=== PATIENT | female | born 1975 | race Caucasian/White ===

== ENCOUNTER 2018-11-15 22:50 | Emergency (ER) | payer OTHER ==
[2018-11-15 22:55] VITALS: BP 117/66; PULSE 79; TEMP 98.4; BMI 28.9
--- NOTE | 2018-11-16 00:56 | PDOC ---
History of Present Illness - General Chief Complaint: Injury Stated Complaint: R FOOT INJURY Time Seen by Provider: 11/16/18 00:55 - History of Present Illness Initial Comments: 11/16/18 00:56 Sonya Andujar is a 43F presenting with trauma to her right big toe. 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 Now reports sharp, throbbing pain to her toe radiating up through her foot and into her R lower leg. Nail was coming off and bleeding profusely at the time, but has since slowed down. Denies any LOC, fall, or any other injury. Has IUD, denies at this time. No drug allergies. Past History - Past Medical History Allergies/Adverse Reactions: Allergies Allergy/AdvReac Type Severity Reaction Status Date / Time No Known Allergies Allergy Verified 11/16/18 01:11 Home Medications: Ambulatory Orders Ibuprofen 800 mg PO TID PRN #21 tablet 11/16/18 COPD: No - Immunization History Immunization Up to Date: Yes - Suicide/Smoking/Psychosocial Hx Smoking Status: No Smoking History: Never smoked Number of Cigarettes Smoked Daily: 0 Review of Systems - Review of Systems Able to Perform ROS?: Yes Is the patient limited Romansh proficient: No Constitutional: Yes: Symptoms Reported, Chills HEENTM: No: Symptoms Reported Respiratory: No: Symptoms reported Cardiac (ROS): No: Symptoms Reported ABD/GI: No: Symptoms Reported : No: Symptoms Reported Musculoskeletal: Yes: See HPI, Other (pain and bleeding to her R big toe, nail coming off) Integumentary: No: Symptoms Reported Neurological: No: Symptoms reported Endocrine: No: Symptoms Reported Hematologic/Lymphatic: No: Symptoms Reported All Other Systems: Reviewed and Negative *Physical Exam - Vital Signs Last Vital Signs Temp Pulse Resp BP Pulse Ox 98.4 F 79 19 117/66 97 11/15/18 22:53 11/15/18 22:53 11/15/18 22:53 11/15/18 22:53 11/15/18 22:53 - Physical Exam General Appearance: Yes: Nourished, Appropriately Dressed, Mild Distress HEENT: positive: EOMI, Normal ENT Inspection, Normal Voice, Hearing Grossly Normal. negative: Scleral Icterus (R), Scleral Icterus (L) Neck: positive: Trachea midline, Normal Thyroid, Supple. negative: Lymphadenopathy (R), Lymphadenopathy (L) Respiratory/Chest: positive: Lungs Clear, Normal Breath Sounds. negative: Respiratory Distress Cardiovascular: positive: Regular Rhythm, Regular Rate. negative: Murmur Gastrointestinal/Abdominal: positive: Normal Bowel Sounds, Soft. negative: Organomegaly Musculoskeletal: positive: Normal Inspection Extremity: positive: Other (R foot: nail on big toe is avulsed but attached at the root with some clots under nail, not actively bleeding but has serosang drainage, toe erythematous and grossly tender, able to move big toe but limited by pain, DP pulse present, remaining toes appear grossly normal and non-tender, full ROM at ankle and knee, no bony tenderness to tibia) Integumentary: positive: Normal Color, Dry, Warm Neurologic: positive: Fully Oriented, Alert, Normal Mood/Affect, Normal Response Procedures - Laceration/Wound Repair Right Foot 1st digit Wound Explored: clean Wound's Depth, Shape: nail-avulsed (incomplete avulsion to R big toe) Irrigated w/ Saline: Yes Betadine Prep: No Anesthesia: 2% Lidocaine (performed a ring block to big toe in the web space as well as to both sides of toe) Amount of Anesthetic (ccs): 3 Wound Debrided: minimal Sterile Dressing Applied: Yes (Kerlix wrapped around toe to keep nail in place) Medical Decision Making - Medical Decision Making 11/16/18 00:56 Sonya Andujar is a 43F presenting with trauma to her right big toe. Toe appears grossly erythematous and is tender to toe and foot, concern high for toe fracture. Will give Motrin and get XR R foot to evaluate. No active bleeding from under toenail but possible nail bed laceration, will evaluate after XR. 11/16/18 02:23 No toe fx noted on XR foot. Will attempt to replace avulsed nail back into toe. Gave 4mg morphine IM and performed ring block on R big toe. Wrapped toe in Kerlix and tape to keep nail down into bed. Will d/c home with care instructions and f/u. *DC/Admit/Observation/Transfer Diagnosis at time of Disposition: Pain of right great toe Toenail avulsion Qualifiers: Encounter type: initial encounter Qualified Code(s): S91.209A - Unspecified open wound of unspecified toe(s) with damage to nail, initial encounter - Prescriptions Prescriptions: Ibuprofen 800 mg PO TID PRN #21 tablet PRN Reason: Pain - Referrals Referrals: ON STAFF,NOT [Primary Care Provider] - - Patient Instructions Additional Instructions: Today you were evaluated for an injury to your big toe on the right foot. We gave you some Motrin as well as morphine for the pain. We obtained an X-ray of your right foot, and your toe is not broken. We numbed your toe and pushed the nail back into the nail bed, then wrapped the toe in gauze, which we have also provided you with. Please keep the toe dry by wrapping a bag or other covering around the toe for the next week. Replace the gauze around the toe if it gets dirty, and keep it wrapped tight to keep the nail in place for the next 5-7 days. After, keep the area clean with soap and water. The nail will eventually fall off as as new nail grows underneath; this is normal and expected. Try not to use your left foot for any strenuous activities, including exercise or sports. We have included a prescription for a stronger ibuprofen for your pain, please take one 800mg pill every 8 hours as needed for pain, up to 2400mg. If you see any signs of infection, including more pain, discharge, numbness in your toe, or any other new or concerning symptoms, please return to the closest emergency room. Please follow-up with you primary doctor in the next 3 days for further care. - Post Discharge Activity
--- NOTE | 2018-11-16 00:57 | PDOC ---
Attending Attestation - Resident Resident Name: Prashanth Avendano - ED Attending Attestation I have performed the following: I have examined & evaluated the patient, The case was reviewed & discussed with the resident, I agree w/resident's findings & plan - HPI HPI: 11/16/18 03:14 see resident hpi - Physicial Exam PE: 11/16/18 03:14 agree with resident exam - Medical Decision Making 11/16/18 03:15 43-year-old female with injury to the right great toe X-ray shows no obvious fracture Local block performed with 2% lidocaine without epinephrine by the emergency department resident's Nailbed reduced to natural position Bulky wrap applied Patient neurovascularly intact postprocedure with brisk cap refill Will DC with podiatry follow-up
[2018-11-16] MEDS ORDERED: IBUPROFEN 400 MG TABLET (FP) PO ONE ×2 (01:00→01:07)
[2018-11-16] MEDS ORDERED: LIDOCAINE HCL 2% (50ML VIAL) INF ONE (02:26)
[2018-11-16] MEDS ORDERED: LIDOCAINE HCL 2% (20ML MULTI-DOSE VIAL) NR ONE (02:28)
[2018-11-16] MEDS ORDERED: morphine CARPU-JECT 2 MG/1 ML DISP.SYRIN IM ONE (02:39)
[2018-11-16] MEDS ORDERED: morphine SULFATE 4 MG/ML VIAL ONE (02:52)
== END 2018-11-16 03:50 | disposition home or self-care (01) ==
LOC: JER 22:50
PROC: 0HDRXZZ Extraction of Toe Nail, External Approach (ICD-10-PCS; principal; 2018-11-15)
DX: S91.201A Unspecified open wound of right great toe with damage to nail, initial encounter (principal); W22.8XXA Striking against or struck by other objects, initial encounter; Y93.89 Activity, other specified; Y92.038 Other place in apartment as the place of occurrence of the external cause; Y99.8 Other external cause status
CPT/HCPCS: 73630-TC-RT-FY; 99281-25